=== PATIENT | female | born 1955 | race Caucasian/White ===

== ENCOUNTER → 2017-01-25 | Outpatient (CLI) | payer BC ==
[~2017-01-25] MED LIST: ALBU17AE23 IH; ALBU8.5H4 IH; ALPR.5T PO; ASP81TEC PO; BUDE6HFA IH; CALCIUM CHEW PO; DIPH50CA PO; ENAL20TA PO; EST05TD TD; FAMO20TA5 PO; HYDR-3583 PO; KETO-22 PO; MEPE50TA; MEPE50TA PO; OMEP-10 PO; PROP60CA17 PO; TRAM50TA2 PO; [UNRECOGNIZED DRUG - CODE]
--- NOTE | 2017-01-25 19:41 | Diagnostic Imaging Report ---
EXAMINATION: Magnetic resonance imaging of the right shoulder without contrast. DATE: January 25, 2017. COMPARISON: None. HISTORY: 61-year-old female, right shoulder pain after lifting injury. TECHNIQUE: Magnetic Resonance Imaging sequences were performed of the shoulder without contrast. [< >] FINDINGS: ROTATOR CUFF, LIGAMENTS, TENDONS, AND MUSCLES: There is a full-thickness full width tear of the supraspinatus tendon with tendon retraction to the level of the superior humeral head measuring 1.8 cm. There is severe infraspinatus tendinopathy. The teres minor tendon is intact. The subscapularis tendon is intact. There is normal rotator cuff muscle bulk and signal. LONG HEAD OF BICEPS: The long head of biceps tendon is torn and retracted to the level of the very lower margin of the bicipital groove. GLENOHUMERAL JOINT: The humeral head is well positioned relative to the glenoid. The labrum is grossly intact. The articular cartilage is grossly intact. There is no joint effusion. ACROMIOCLAVICULAR JOINT: The acromioclavicular joint is normally aligned. The coracoclavicular and coracoacromial ligaments are intact. There are moderate acromioclavicular degenerative changes with 1-2 mm undersurface osteophytes. BONE: There is no acute fracture, bone contusion, or evidence of osteonecrosis. There is degenerative related marrow edema adjacent to the acromioclavicular joint. There is no large subcortical cyst underlying the site of the supraspinatus tendon tear. BURSAE AND SOFT TISSUES: There is fluid in the subacromial subdeltoid bursa compatible with the full-thickness rotator cuff tendon tear, bursitis, and/or recent injection. IMPRESSION: 1. Full-thickness full-width tear of the supraspinatus tendon with tendon retraction to the level of the superior humeral head. No fatty muscle atrophy. Severe infraspinatus tendinopathy. 2. Tear of the long head of biceps tendon with retraction to the very lower margin of the bicipital groove. 3. Moderate acromioclavicular degenerative changes with 1-2 mm undersurface osteophytes. Report was faxed to JONEL Cool at 7:37 p.m., by lamberto (for NK). Dictated by: Dictated on workstation # [id number]
== END ==
LOC: RAD 18:24
PROVIDERS: ATTEND Nurse Practitioner Family
DX: M25.511 Pain in right shoulder (principal); S46.811A Strain of other muscles, fascia and tendons at shoulder and upper arm level, right arm, initial encounter; M19.011 Primary osteoarthritis, right shoulder; X50.9XXA Other and unspecified overexertion or strenuous movements or postures, initial encounter
CPT/HCPCS: 73221

== ENCOUNTER → 2017-03-16 | Outpatient (CLI) | payer BC ==
--- NOTE | 2017-03-17 08:13 | Diagnostic Imaging Report ---
PROCEDURE: MRI left upper extremity without contrast. TECHNIQUE: Multiplanar, multisequence non contrast-enhanced MRI of the left upper extremity was accomplished. INDICATION: Progressive left shoulder pain. History of previous shoulder surgeries including rotator cuff repair and biceps tendon release. FINDINGS: The humeral head is in normal articulation with the glenoid. Articulating surfaces are smooth. Surgical anchor noted in the humeral tuberosity consistent with previous rotator cuff repair. The rotator cuff does appear to be intact. There has been release of the long head of the biceps tendon. There is irregularity along the anterior superior labrum with subcortical cystic change which is suggestive of chronic labral tear. The infraspinatus and subscapularis are intact. There is mild hypertrophy of the AC joint which is in good alignment. No evidence of impingement upon the supraspinatus tendon. No joint effusion. The surrounding muscles appear normal. IMPRESSION: 1. Postsurgical residue. The rotator cuff does appear to remain intact. 2. Release of the biceps tendon. 3. Chronic changes noted along the anterior superior labrum with subcortical cystic change with probable chronic labral tear. Dictated by: Dictated on workstation # [id number]
== END ==
LOC: RAD 14:03
PROVIDERS: ATTEND Orthopaedic Surgery
DX: R93.7 Abnormal findings on diagnostic imaging of other parts of musculoskeletal system (principal); Z98.890 Other specified postprocedural states; M24.412 Recurrent dislocation, left shoulder
CPT/HCPCS: 73221

== ENCOUNTER 2017-08-02 16:51 | Outpatient (RCR) | payer BC | END 2017-08-02 17:30 | disposition home or self-care (01) | PROVIDERS: ATTEND Orthopaedic Surgery | DX: S43.492S Other sprain of left shoulder joint, sequela (principal); Z98.890 Other specified postprocedural states ==

== ENCOUNTER 2017-09-21 16:35 | Outpatient (RCR) | payer BC | END 2017-10-04 09:00 | disposition home or self-care (01) | PROVIDERS: ATTEND Orthopaedic Surgery | DX: S43.421A Sprain of right rotator cuff capsule, initial encounter (principal); X58.XXXA Exposure to other specified factors, initial encounter ==

== ENCOUNTER 2017-11-05 18:32 | Emergency (ER) | payer BC ==
[~2017-11-05] VITALS: Ht 170.2 cm; Wt 61.2 kg
[2017-11-05] MEDS ORDERED: NS IV 1000 ML 1,000 ML IV SCH (18:47)
[2017-11-05 19:23] LABS: BASOPHILS % (AUTO) 1 % (0-10); EOSINOPHILS # (AUTO) 0.1 10^3/uL (0.0-0.3); EOSINOPHILS % (AUTO) 2 % (0-10); HEMATOCRIT 41 % (35-52); HEMOGLOBIN 14.6 G/DL (11.5-16.0); LYMPHOCYTES # (AUTO) 1.8 X 10^3 (1.0-4.0); LYMPHOCYTES % (AUTO) 31 % (12-44); MEAN CORPUSCULAR HEMOGLOBIN 31 PG (25-34); MEAN CORPUSCULAR HGB CONC 35 G/DL (32-36); MEAN CORPUSCULAR VOLUME 88 FL (80-99); MEAN PLATELET VOLUME 10.9 FL (7.4-10.4); MONOCYTES # (AUTO) 0.6 X 10^3 (0.0-1.0); MONOCYTES % (AUTO) 10 % (0-12); NEUTROPHILS # (AUTO) 3.3 X 10^3 (1.8-7.8); NEUTROPHILS % (AUTO) 56 % (42-75); PLATELET COUNT 211 10^3/uL (130-400); RED BLOOD COUNT 4.66 10^6/uL (4.35-5.85); RED CELL DISTRIBUTION WIDTH 12.3 % (10.0-14.5); WHITE BLOOD COUNT 5.9 10^3/uL (4.3-11.0)
[2017-11-05 19:35] LABS: BILIRUBIN,URINE NEGATIVE (NEGATIVE); CLARITY,URINE CLEAR; COLOR,URINE YELLOW; GLUCOSE, URINE (UA) NEGATIVE (NEGATIVE); KETONES,URINE NEGATIVE (NEGATIVE); LEUKOCYTE ESTERASE ,URINE NEGATIVE (NEGATIVE); NITRITE,URINE NEGATIVE (NEGATIVE); PH,URINE 7 (5-9); PROTEIN,URINE NEGATIVE (NEGATIVE); UROBILINOGEN,URINE NORMAL (NORMAL)
[2017-11-05 19:46] LABS: ALANINE AMINOTRANSFERASE 11 U/L (0-55); ALBUMIN 3.8 GM/DL (3.2-4.5); ALKALINE PHOSPHATASE 79 U/L (40-136); BILIRUBIN,TOTAL 0.4 MG/DL (0.1-1.0); BUN/CREATININE RATIO 20; CALCIUM 9.2 MG/DL (8.5-10.1); CARBON DIOXIDE 26 MMOL/L (21-32); CHLORIDE 107 MMOL/L (98-107); CREATININE SERUM 0.79 MG/DL (0.60-1.30); GFR ESTIMATED > 60; GLUCOSE 97 MG/DL (70-105); MAGNESIUM 1.6 MG/DL (1.8-2.4); POTASSIUM 3.4 MMOL/L (3.6-5.0); SODIUM 142 MMOL/L (135-145)
[2017-11-05 19:47] LABS: ACETAMINOPHEN < 10 UG/ML (10-30)
[2017-11-05 19:54] LABS: AMPHETAMINE SCREEN, URINE NEGATIVE (NEGATIVE); BARBITURATE SCREEN URINE NEGATIVE (NEGATIVE); BENZODIAZEPINES SCREEN URINE POSITIVE (NEGATIVE); CANNABINOID SCREEN, URINE POSITIVE (NEGATIVE); COCAINE SCREEN URINE NEGATIVE (NEGATIVE); METHADONE STAT NEGATIVE (NEGATIVE); METHAMPHETAMINE SCREEN URINE S NEGATIVE (NEGATIVE); OPIATE SCREEN URINE NEGATIVE (NEGATIVE); OXYCODONE STAT NEGATIVE (NEGATIVE); PROPOXYPHENE STAT NEGATIVE (NEGATIVE); TRICYCLIC ANTIDEPRESSANTS SCRE NEGATIVE (NEGATIVE)
[2017-11-05] MEDS ORDERED: D5 NS 1000 ML IV SOLUTION 1,000 ML IV ONE (20:24)
[2017-11-05] MEDS ORDERED: MECLIZINE 25 MG (ANTIVERT) TAB PO ONE (20:30)
[2017-11-05] MEDS ORDERED: MEPERIDINE (DEMEROL) INJ 50 MG/ML IVP STA (20:43)
[2017-11-05] MEDS ORDERED: ALPRAZolam 0.25 MG (XANAX) TAB PO ONE (20:45)
--- NOTE | 2017-11-05 21:28 | ED Neurological Problem ---
General Chief Complaint: Neurological Problems Stated Complaint: WEAKNESS Nursing Triage Note: PT REPORTS WAS DIAGNOSED WITH FLU A ON MONDAY. PT REPORTS HAD COUGH/COLD FLU S/S SINCE MONDAY. PT STARTED TAMIFLU MONDAY. PT REPORTS HAD DIFFICULTY WALKING TODAY. Nursing Sepsis Screen: No Definite Risk History of Present Illness Date Seen by Provider: Nov 05, 2017 Time Seen by Provider: 18:45 Initial Comments 62-year-old female presents via EMS for weakness, dizziness, difficulty walking, and influenza B. He started Tamiflu 2 days ago after being diagnosed with influenza. He reports higher levels and anxiety lately related to an illness her has. She uses marijuana and Xanax regularly to treat her anxiety. Reports smoking marijuana yesterday. She reports photophobia, migraine secondary to hearing sounds, she laughs and cries hysterically throughout the exam. Timing/Duration: 4-6 hours Associated Symptoms: confusion, fatigue, No nausea/vomiting, No slurred speech , trouble walking, No vision changes, weakness Allergies and Home Medications Allergies Coded Allergies: Penicillins (Unverified Allergy, Mild, 12/11/08) ciprofloxacin (Unverified Allergy, Unknown, 11/10/11) ciprofloxacin HCl (Unverified Allergy, Unknown, 11/10/11) Codeine (Unverified Allergy, ITCHING, 04/05/11) morphine (Unverified Allergy, "NIGHTMARES", 07/02/12) Home Medications Albuterol 17 Gm Aerosol, 17 GM IH Q4 PRN, (Reported) Alprazolam 0.5 Mg Tablet, 1 TAB PO HS, (Reported) Aspirin 81 Mg Tabec, 81 MG PO DAILY, (Reported) Budesonide/Formoterol Fumarate 10.2 Gm Hfa.aer.ad, 2 PUFF IH BID, (Reported) Diphenhydramine Hcl 50 Mg Capsule, 1 EACH PO NEEDED, (Reported) Enalapril Maleate 20 Mg Tablet, 20 MG PO DAILY, (Reported) Estradiol 0.05 Mg Patch, 0.05 MG TD , (Reported) Famotidine 20 Mg Tablet, 1 EACH PO BID PRN, (Reported) Hydrocodone Bit/Acetaminophen 1 Tab Tab, 1-2 EA PO Q4HR PRN, (Reported) Ketorolac Tromethamine 10 Mg Tablet, 10 MG PO q 6 hrs prn, (Reported) Meperidine Hcl 50 Mg Tablet, 50 MG PO ONSET OF MIGRAIN, (Reported) Propranolol Hcl 60 Mg Cap.sa.24h, 60 MG PO DAILY, (Reported) [Calcium Chew] , 1 PO DAILY, (Reported) Patient Home Medication List Home Medication List Reviewed: Yes Constitutional: see HPI, dizziness, weakness Eyes: See HPI, Photophobia Ears, Nose, Mouth, Throat: no symptoms reported, see HPI Respiratory: no symptoms reported, see HPI Cardiovascular: no symptoms reported, see HPI Gastrointestinal: no symptoms reported, see HPI Genitourinary: no symptoms reported, see HPI Musculoskeletal: see HPI, muscle weakness (lower extremities) Skin: no symptoms reported, see HPI Psychiatric/Neurological: See HPI, Anxiety Endocrine: No Symptoms Reported, See HPI Hematologic/Lymphatic: No Symptoms Reported, See HPI All Other Systems Reviewed Negative Unless Noted: Yes Past Dzhwzvw-Axxsgq-Vfsqdb Hx Patient Social History Alcohol Use: Occasionally Uses Recreational Drug Use: Yes (SMOKES POT ONCE IN AWHILE) Smoking Status: Former Smoker Former Smoker, Quit: Oct 28, 1999 Recent Foreign Travel: No Contact w/Someone Who Travel: No Recent Infectious Disease Expo: No Recent Hopitalizations: Yes (/"THROAT SWELLING") Physical Abuse: No Sexual Abuse: No Mistreated: No Fear: No Surgeries History of Surgeries: Yes (L SHOULDER/ R SHOULDER, L KNEE, HERNIA REPAIR) Surgeries: Section, Lumpectomy, Orthopedic Respiratory History of Respiratory Disorde: Yes Respiratory Disorders: Asthma Cardiovascular History of Cardiac Disorders: Yes Cardiac Disorders: Hypertension Neurological History of Neurological Disord: Yes (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) Neurological Disorders: Headaches /Migraines Reproductive System Hx Reproductive Disorders: No Sexually Transmitted Disease: No Gastrointestinal History of Gastrointestinal Di: No Gastrointestinal Disorders: Gastroesophageal Reflux, Hiatal Hernia Musculoskeletal History of Musculoskeletal Dis: Yes (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) Endocrine History of Endocrine Disorders: No Cancer History of Cancer: No Psychosocial History of Psychiatric Problem: Yes Behavioral Health Disorders: Anxiety, Depression Suicide Risk Score: 0 Blood Transfusions History of Blood Disorders: Yes Reviewed Nursing Assessment Reviewed/Agree w Nursing PMH: Yes Physical Exam Vital Signs Vital Signs - First Documented 11/05/17 18:43 Temp 98.8 Pulse 85 Resp 20 B/P (MAP) 170/96 (120) Pulse Ox 96 Capillary Refill : Less Than 3 Seconds General Appearance: WD/WN, no apparent distress HEENT: normal ENT inspection, TMs normal Neck: non-tender, full range of motion, supple, normal inspection Respiratory: chest non-tender, lungs clear, normal breath sounds Cardiovascular: normal peripheral pulses, regular rate, rhythm Gastrointestinal: normal bowel sounds, non tender, soft Neurologic/Psychiatric: no motor/sensory deficits, alert, oriented x 3, other ( anxious) Crainal Nerves: normal hearing, normal speech, PERRL Motor/Sensory: no motor deficit (resisted flexion and extension of arms and legs is V/V, neuro-vascular status intact bilateral upper and lower extremities. ), no sensory deficit Skin: normal color, warm/dry Progress/Results/Core Measures Results/Orders Lab Results Laboratory Tests Test 11/05/17 19:17 11/05/17 19:30 Range/Units White Blood Count 5.9 4.3-11.0 10^3/uL Red Blood Count 4.66 4.35-5.85 10^6/uL Hemoglobin 14.6 11.5-16.0 G/DL Hematocrit 41 35-52 % Mean Corpuscular Volume 88 80-99 FL Mean Corpuscular Hemoglobin 31 25-34 PG Mean Corpuscular Hemoglobin Concent 35 32-36 G/DL Red Cell Distribution Width 12.3 10.0-14.5 % Platelet Count 211 130-400 10^3/uL Mean Platelet Volume 10.9 H 7.4-10.4 FL Neutrophils (%) (Auto) 56 42-75 % Lymphocytes (%) (Auto) 31 12-44 % Monocytes (%) (Auto) 10 0-12 % Eosinophils (%) (Auto) 2 0-10 % Basophils (%) (Auto) 1 0-10 % Neutrophils # (Auto) 3.3 1.8-7.8 X 10^3 Lymphocytes # (Auto) 1.8 1.0-4.0 X 10^3 Monocytes # (Auto) 0.6 0.0-1.0 X 10^3 Eosinophils # (Auto) 0.1 0.0-0.3 10^3/uL Basophils # (Auto) 0.0 0.0-0.1 10^3/uL Sodium Level 142 135-145 MMOL/L Potassium Level 3.4 L 3.6-5.0 MMOL/L Chloride Level 107 98-107 MMOL/L Carbon Dioxide Level 26 21-32 MMOL/L Anion Gap 9 5-14 MMOL/L Blood Urea Nitrogen 16 7-18 MG/DL Creatinine 0.79 0.60-1.30 MG/DL Estimat Glomerular Filtration Rate > 60 BUN/Creatinine Ratio 20 Glucose Level 97 70-105 MG/DL Calcium Level 9.2 8.5-10.1 MG/DL Magnesium Level 1.6 L 1.8-2.4 MG/DL Total Bilirubin 0.4 0.1-1.0 MG/DL Aspartate Amino Transf (AST/SGOT) 15 5-34 U/L Alanine Aminotransferase (ALT/SGPT) 11 0-55 U/L Alkaline Phosphatase 79 40-136 U/L Total Protein 7.0 6.4-8.2 GM/DL Albumin 3.8 3.2-4.5 GM/DL Acetaminophen Level < 10 L 10-30 UG/ML Serum Alcohol < 10 <10 MG/DL Urine Color YELLOW Urine Clarity CLEAR Urine pH 7 5-9 Urine Specific Crane 1.005 L 1.016-1.022 Urine Protein NEGATIVE NEGATIVE Urine Glucose (UA) NEGATIVE NEGATIVE Urine Ketones NEGATIVE NEGATIVE Urine Nitrite NEGATIVE NEGATIVE Urine Bilirubin NEGATIVE NEGATIVE Urine Urobilinogen NORMAL NORMAL MG/DL Urine Leukocyte Esterase NEGATIVE NEGATIVE Urine RBC (Auto) NEGATIVE NEGATIVE Urine RBC NONE /HPF Urine WBC NONE /HPF Urine Squamous Epithelial Cells 5-10 /HPF Urine Crystals NONE /LPF Urine Bacteria NONE /HPF Urine Casts NONE /LPF Urine Mucus NEGATIVE /LPF Urine Culture Indicated NO Urine Opiates Screen NEGATIVE NEGATIVE Urine Oxycodone Screen NEGATIVE NEGATIVE Urine Methadone Screen NEGATIVE NEGATIVE Urine Propoxyphene Screen NEGATIVE NEGATIVE Urine Barbiturates Screen NEGATIVE NEGATIVE Ur Tricyclic Antidepressants Screen NEGATIVE NEGATIVE Urine Phencyclidine Screen NEGATIVE NEGATIVE Urine Amphetamines Screen NEGATIVE NEGATIVE Urine Methamphetamines Screen NEGATIVE NEGATIVE Urine Benzodiazepines Screen POSITIVE H NEGATIVE Urine Cocaine Screen NEGATIVE NEGATIVE Urine Cannabinoids Screen POSITIVE H NEGATIVE My Orders Orders - RICARDO,DIMPLE VP DATA Acetaminophen (11/05/17 18:46) Alcohol (11/05/17 18:46) Cbc With Automated Diff (11/05/17 18:46) Comprehensive Metabolic Panel (11/05/17 18:46) Drug Screen Stat (Urine) (11/05/17 18:46) Magnesium (11/05/17 18:46) Ua Culture If Indicated (11/05/17 18:46) Saline Lock/Iv-Start (11/05/17 18:47) Ns Iv 1000 Ml (Sodium Chloride 0.9%) (11/05/17 18:47) Ekg Tracing (11/05/17 18:47) Meclizine Tablet (Antivert Tablet) (11/05/17 20:30) Saline Lock/Iv-Start (11/05/17 20:24) D5 Ns 1000 Ml Iv Solution (Dextrose 5%/0 (11/05/17 20:24) Meperidine Injection (Demerol Injection) (11/05/17 20:43) Alprazolam Tablet (Xanax Tablet) (11/05/17 20:45) Medications Given in ED Current Medications Medications Dose Ordered Sig/Melony Route Start Time Stop Time Status Last Admin Dose Admin Alprazolam 0.25 mg ONCE ONCE PO 11/05/17 20:45 11/05/17 20:46 DC 11/05/17 20:55 0.25 MG Dextrose/Sodium Chloride 1,000 ml @ 0 mls/hr Q0M ONCE IV 11/05/17 20:24 11/05/17 20:25 DC 11/05/17 20:54 0 MLS/HR Meclizine HCl 25 mg ONCE ONCE PO 11/05/17 20:30 11/05/17 20:31 DC 11/05/17 20:55 25 MG Vital Signs/I&O Vital Sign - Last 12Hours 11/05/17 11/05/17 18:43 21:49 Temp 98.8 98.8 Pulse 85 85 Resp 20 20 B/P (MAP) 170/96 (120) 170/96 (120) Pulse Ox 96 96 Blood Pressure Mean: 120 Progress Note : Time: 18:45 Progress Note Initial evaluation completed, patient required all lights to be turned off and staff to whisper to her. She would become hysterical if loud noises occurred. She reports that she will be walking at home and then fall on her right side because of weakness. In the bed she is moving around from side to side with no signs of weakness. She has full range of motion of all extremities and full power. She goes from periods of anxiety to periods of crying that she has a migraine. She reports a history of anxiety, it has worsened over the recent weeks because her has been ill. Will give normal saline 1 L per IV and complete labs and EKG. 1944 labs and EKG essentially normal. Patient complaining of dizziness, will give meclizine 25 mg. discussed with the patient that some of the effects from the Tamiflu for similar to what she is experiencing. 2014 patient complaining of headache, requesting Demerol as it is helped in the past. Will administer Demerol 25 mg IV. She is also complaining anxiety will give Xanax 0.25 mg orally. 2099 patient able to ambulate with no difficulty, she reports the dizziness is improving. 2114 discharge planning and return precautions reviewed with the patient, her and daughter. ECG Initial ECG Impression Date: Nov 05, 2017 Initial ECG Impression Time: 19:01 Initial ECG Rate: 77 Initial ECG Rhythm: Normal Sinus Initial ECG Intervals: Normal Initial ECG Intervals ME 148, QRSD 78, QT 432, QTC 489. Foreman P 84, QRS 69, T 62. Initial ECG Impression: Normal Initial ECG Comparisson: No Previous ECG Available Comment Reviewed with Dr. Gillis, concurred with interpretation. Departure Impression Impression: Primary Impression: Influenza Additional Impressions: Vertigo Migraine Qualified Codes: G43.019 - Migraine without aura, intractable, without status migrainosus Anxiety Disposition: HOME, SELF-CARE Condition: Improved Departure-Patient Inst. Decision time for Depature: 21:30 Referrals: UNKNOWN (PCP/Family) Primary Care Physician Patient Instructions: Anxiety, Adult (DC), Flu, Adult (DC), Migraine Headache ( DC), Vertigo (a Type of Dizziness) (DC) Add. Discharge Instructions: Stop Taking Tamiflu. Use Tylenol 650 mg alternating with ibuprofen 600 mg every 4 hours for pain or fever. Take your home medications. Use [id number] meclizine 25 mg every 8 hours for dizziness. All up with Dr. Zelaya if your symptoms are not improving. Return to emergency department for new problems. All discharge instructions reviewed with patient and/or family. Voiced understanding. Copy Copies To 1: ELIZABETH ZELAYA MD, AMY ARNP Nov 05, 2017 21:28
[2017-11-05 21:49] VITALS: BP 170/96
== END 2017-11-05 21:43 | disposition home or self-care (01) ==
LOC: EDUNIT# 18:32 → ER 18:33
DX: J10.1 Influenza due to other identified influenza virus with other respiratory manifestations (principal); I10 Essential (primary) hypertension; G43.909 Migraine, unspecified, not intractable, without status migrainosus; R42 Dizziness and giddiness; J45.909 Unspecified asthma, uncomplicated; K21.9 Gastro-esophageal reflux disease without esophagitis; F41.9 Anxiety disorder, unspecified; F32.9 Major depressive disorder, single episode, unspecified; F12.90 Cannabis use, unspecified, uncomplicated; Z87.59 Personal history of other complications of pregnancy, childbirth and the puerperium; Z87.891 Personal history of nicotine dependence; Z79.82 Long term (current) use of aspirin; Z88.0 Allergy status to penicillin; Z88.1 Allergy status to other antibiotic agents; Z88.5 Allergy status to narcotic agent
CPT/HCPCS: 36415; 80053; 80306; 80320; 80329; 81000; 83735; 85025; 93005

== ENCOUNTER → 2018-07-02 | Outpatient (CLI) | payer BC ==
--- NOTE | 2018-07-02 18:10 | Diagnostic Imaging Report ---
PROCEDURE: US Thyroid. TECHNIQUE: Multiple real-time grayscale images were obtained of the thyroid in various projections. INDICATION: Thyroid nodules. FINDINGS: Right lobe of the thyroid measures 4.6 x 2.2 x 1.7 cm, and left lobe measures 4.7 x 1.7 x 1.6 cm. There is a 6 mm solid nodule in the right lobe mid aspect. A partially calcified 5 mm nodule in the lower pole of the left lobe is seen. No other masses are seen. IMPRESSION: Bilateral thyroid nodules. No dominant thyroid mass is detected. Dictated by: Dictated on workstation # [id number]
== END ==
LOC: RAD 14:53
PROVIDERS: ATTEND Family Medicine
DX: E04.2 Nontoxic multinodular goiter (principal)
CPT/HCPCS: 76536

== ENCOUNTER → 2018-07-17 | Outpatient (CLI) | payer BC ==
--- NOTE | 2018-07-18 21:02 | Diagnostic Imaging Report ---
EXAMINATION: Digital mammogram bilateral screening with 3D tomosynthesis. INDICATION: Screening. COMPARISON: This study was compared to the prior exam of 12/02/2010. At this time, there are no current complaints. The current study was also evaluated with a Computer Aided Detection (CAD) system. FINDINGS: The fibroglandular tissue in both breasts is heterogeneously dense. This does limit the sensitivity of this exam. In the medial aspect of the right breast, approximately 6 cm from the nipple, there is a 9 mm asymmetric density which was not clearly present on the prior exam. The tomographic images suggest that this has a fairly smooth border, and this may represent a benign process. Even so, I would recommend that a compression view of this area be obtained in the CC and MLO projections for further study. Ultrasound should also be performed. The left breast is unchanged. IMPRESSION: Additional mammographic views and ultrasound of the right breast would be recommended for further evaluation. ACR BI-RADS Category 0: Incomplete. (Needs additional imaging evaluation). Result letter will be mailed to the patient. Note: At least 10% of breast cancer is not imaged by mammography. Dictated by: Dictated on workstation # [id number]
== END ==
LOC: RAD 07:38
PROVIDERS: ATTEND Surgery
DX: Z12.31 Encounter for screening mammogram for malignant neoplasm of breast (principal)
CPT/HCPCS: 77067

== ENCOUNTER → 2018-08-13 | Outpatient (CLI) | payer BC ==
--- NOTE | 2018-08-13 22:28 | Diagnostic Imaging Report ---
INDICATION: Right breast density. Correlation is made with diagnostic mammogram earlier the same day and screening mammogram from 07/17/2018. FINDINGS: Sonographic interrogation of the inner right breast was performed. There is a circumscribed nodule in the right breast at the 2 o'clock location 3 cm from the nipple measuring 7 mm x 5 mm x 9 mm. This has the appearance of a cluster of cysts. This likely accounts for the circumscribed lobulated density noted on mammogram. No other masses are identified. IMPRESSION: Benign-appearing nodule at the 2 o'clock location of the right breast 3 cm from the nipple accounting for the mammographic density. Even so, followup right mammogram and right breast ultrasound in 6 months is recommended to confirm stability. ACR BI-RADS Category 3: Probably benign findings. Dictated by: Dictated on workstation # [id number]
--- NOTE | 2018-08-13 22:39 | Diagnostic Imaging Report ---
INDICATION: Right breast density. Patient presents for additional views. Correlation is made with recent screening mammogram from 07/17/2018. Unilateral right 2-D and 3-D diagnostic mammography was performed with a Computer Aided Detection (CAD) system. This included spot compression CC and ML as well as conventional 90 degree lateral view. FINDINGS: There is a persistent slightly lobulated and circumscribed 5 cm from the nipple. This is not well seen on the ML views. This may be at approximately 3 o'clock location. No other suspicious abnormality is seen. IMPRESSION: Persistent nodular density medial right breast at mid depth. Further evaluation with ultrasound is recommended and will be performed today. ACR BI-RADS Category 0: Incomplete. (Needs additional imaging evaluation). Result letter will be mailed to the patient. Note: At least 10% of breast cancer is not imaged by mammography. Dictated by: Dictated on workstation # [id number]
== END ==
LOC: RAD 13:14
PROVIDERS: ATTEND Surgery
DX: N63.12 Unspecified lump in the right breast, upper inner quadrant (principal); N64.89 Other specified disorders of breast

== ENCOUNTER → 2019-10-29 | Outpatient (CLI) | payer BC ==
--- NOTE | 2019-10-29 16:17 | Diagnostic Imaging Report ---
INDICATION: Lump in neck. COMPARISON: Thyroid ultrasound of 07/02/2018. TECHNIQUE: Multi-projectional sonographic imaging of the thyroid was performed. Targeted ultrasound imaging was also performed in the midline of the neck at the site of palpable concern. FINDINGS: At the site of palpable concern, there is normal appearance of either the hyoid bone or calcified thyroid cartilage. There is no concerning abnormality at this site. The right thyroid lobe measures 4.8 x 1.7 x 1.5 cm. The left thyroid lobe measures 4.5 x 1.6 x 1.4 cm. The thyroid isthmus is normal in size measuring 0.2 cm. Normal blood flow is seen throughout the thyroid. There are a few scattered bilateral calcified nodules measuring less than 5 mm in size and similar to prior exam. There is also a small solid 6 mm focus with well-circumscribed margins that is wider than tall in the mid right thyroid that is similar. IMPRESSION: 1. At the site of palpable concern, there is either normal hyoid bone versus calcified thyroid cartilage. No concerning abnormality is present. 2. There are a few tiny bilateral thyroid nodules which have no imaging features that are suspicious for neoplasm. Dictated by: Dictated on workstation # [id number]
== END ==
LOC: RAD 12:50
PROVIDERS: ATTEND Nurse Practitioner Family
DX: R22.1 Localized swelling, mass and lump, neck (principal)
CPT/HCPCS: 76536

== ENCOUNTER → 2020-11-25 | Outpatient (CLI) | payer BC ==
--- NOTE | 2020-11-26 14:48 | Diagnostic Imaging Report ---
INDICATION: Routine screening. Comparison is made prior mammogram 07/17/2018. 2-D and 3-D bilateral screening mammography was performed with CAD. Both breasts are heterogeneously dense, limiting the sensitivity of mammography. A nodular density medial right breast appears to be stable. No new mass or malignant appearing microcalcifications are seen. Axillae are unremarkable. IMPRESSION: BI-RADS Category 2 No mammographic features suspicious for malignancy are identified. ACR BI-RADS Category 2: Benign findings. Result letter will be mailed to the patient. Note: At least 10% of breast cancer is not imaged by mammography. Dictated by: Dictated on workstation # [id number]
== END ==
LOC: RAD 15:18
DX: Z12.31 Encounter for screening mammogram for malignant neoplasm of breast (principal)
CPT/HCPCS: 77063; 77067